=== PATIENT | female | born 1935 ===

== ENCOUNTER 2021-11-25 15:44 | Emergency (ER) | payer MEDICARE ==
[2021-11-25 15:50] VITALS: BP 140/88
--- NOTE | 2021-11-25 16:58 | XRay Report ---
CHEST 2 VIEWS INDICATION / CLINICAL INFORMATION: COUGH. COMPARISON: None available. FINDINGS: SUPPORT DEVICES: None. HEART / MEDIASTINUM: No significant abnormality. LUNGS / PLEURA: No significant pulmonary or pleural abnormality. No pneumothorax. ADDITIONAL FINDINGS: No significant additional findings. IMPRESSION: 1. No acute findings. Signer Name: Roshan Flynn MD Signed: 11/25/2021 4:54 PM Workstation Name: [id number]
== END 2021-11-26 04:46 ==
LOC: ED 15:44
DX: R05.9 Cough, unspecified (principal); Z53.21 Procedure and treatment not carried out due to patient leaving prior to being seen by health care provider
CPT/HCPCS: 71046